=== PATIENT | female | born 1950 | race Caucasian/White ===

== ENCOUNTER 2017-12-22 18:36 | Emergency (ER) | payer OTHER ==
[~2017-12-22] VITALS: Ht 170.2 cm; Wt 86.2 kg
== END 2017-12-22 21:29 | disposition home or self-care (01) ==
LOC: ER 18:36
DX: S00.83XA Contusion of other part of head, initial encounter (principal); S20.212A Contusion of left front wall of thorax, initial encounter; W01.198A Fall on same level from slipping, tripping and stumbling with subsequent striking against other object, initial encounter
CPT/HCPCS: 70450; 71046; 99284

== ENCOUNTER 2022-05-17 15:22 | Inpatient (IN) | payer MEDICARE, OTHER ==
[~2022-05-17] VITALS: Ht 167.6 cm; Wt 78.8 kg
[2022-05-17 18:17] LABS: BASOPHILS ABSOLUTE AUTO 0.02 K/mm3 (0.00-0.23); BASOPHILS PERCENT AUTO 0 % (0-2); EOSINOPHILS ABSOLUTE AUTO 0.01 K/mm3 (0.00-0.68); EOSINOPHILS PERCENT AUTO 0 % (0-6); Hemoglobin 11.6 g/dL (11.5-16.0); IMMATURE GRAN ABSOLUTE AUTO 0.05 K/mm3 (0.00-0.10); IMMATURE GRAN PERCENT AUTO 1 % (0-1); LYMPHOCYTES ABSOLUTE AUTO 0.27 K/mm3 (0.84-5.20); LYMPHOCYTES PERCENT AUTO 4 % (21-46); MONOCYTES ABSOLUTE AUTO 0.26 K/mm3 (0.16-1.47); MONOCYTES PERCENT AUTO 4 % (4-13); Mean Corpuscular HGB 34.3 pg (26.0-34.0); Mean Corpuscular HGB Conc 35.2 g/dL (31.5-36.5); Mean Corpuscular Volume 98 fL (80-100); NEUTROPHILS ABSOLUTE AUTO 6.67 K/mm3 (1.96-9.15); NEUTROPHILS PERCENT AUTO 92 % (41-73); Platelet Count 80 K/mm3 (150-400); RDW Coefficient Variation 14.2 % (11.7-14.2); RDW Standard Deviation 51.6 fL (35.1-46.3); Red Blood Cell Count 3.38 M/mm3 (3.80-5.20); White Blood Cell Count 7.28 K/mm3 (4.00-11.30)
[2022-05-17 18:32] LABS: Albumin/Globulin Ratio 0.9 (0.8-1.8); Bilirubin, Total 1.9 mg/dL (0.1-1.0); Bun/Creatinine Ratio 16.8 (12.0-20.0); Calcium, Blood 8.6 mg/dL (8.5-10.1); Creatinine, Blood 1.37 mg/dL (0.40-1.00); Globulin, Blood 3.2 g/dL (2.2-4.0); Potassium, Blood 5.1 mmol/L (3.5-5.5); Total Protein, Blood 6.2 g/dL (6.4-8.2)
[2022-05-17] MEDS ORDERED: FURO20 PO (19:50)
[2022-05-17] MEDS ORDERED: POTA20LUD PO (19:51)
[2022-05-17] MEDS ORDERED: ALDACTONE25 MG PO (19:52)
--- NOTE | 2022-05-17 20:37 | NUR ---
NEW ADMIT PT ADMITTED FOR L HIP FX. SLIDE TRANSFER TO BED. ORIENTED TO CALL LIGHT & . MEDICATED FOR PAIN. WILL MONITOR.
[2022-05-18 05:17] LABS: BASOPHILS ABSOLUTE AUTO 0.02 K/mm3 (0.00-0.23); BASOPHILS PERCENT AUTO 0 % (0-2); EOSINOPHILS PERCENT AUTO 0 % (0-6); Hematocrit 32.4 % (33.0-51.0); Hemoglobin 11.3 g/dL (11.5-16.0); IMMATURE GRAN ABSOLUTE AUTO 0.07 K/mm3 (0.00-0.10); IMMATURE GRAN PERCENT AUTO 1 % (0-1); LYMPHOCYTES ABSOLUTE AUTO 0.43 K/mm3 (0.84-5.20); LYMPHOCYTES PERCENT AUTO 5 % (21-46); MONOCYTES ABSOLUTE AUTO 0.57 K/mm3 (0.16-1.47); MONOCYTES PERCENT AUTO 6 % (4-13); Mean Corpuscular HGB 34.1 pg (26.0-34.0); Mean Corpuscular HGB Conc 34.9 g/dL (31.5-36.5); Mean Corpuscular Volume 98 fL (80-100); Mean Platelet Volume 11.6 fL (9.1-12.4); NEUTROPHILS ABSOLUTE AUTO 8.36 K/mm3 (1.96-9.15); NEUTROPHILS PERCENT AUTO 89 % (41-73); Platelet Count 85 K/mm3 (150-400); RDW Coefficient Variation 14.5 % (11.7-14.2); RDW Standard Deviation 51.9 fL (35.1-46.3); Red Blood Cell Count 3.31 M/mm3 (3.80-5.20); White Blood Cell Count 9.45 K/mm3 (4.00-11.30)
[2022-05-18 05:39] LABS: Bun/Creatinine Ratio 19.4 (12.0-20.0); Calcium, Blood 8.2 mg/dL (8.5-10.1); Creatinine, Blood 1.55 mg/dL (0.40-1.00); Potassium, Blood 5.7 mmol/L (3.5-5.5)
--- NOTE | 2022-05-18 06:17 | NUR ---
SHIFT SUMMARY AOX4. VSS. DENIES N/V OR DYSPNEA. ADMITTED FOR L HIP FX. GRIMACES, MOANS, SIERRA OUT, PAINFUL TO TURN IN BED OR RAISE HOB, MEDICATED 3x c 0.5MG DILAUDID. L LEG EXTERNALLY ROTATED, PEDAL PULSES WEAK, TOES COOL, CAP REFILL <3. PT HAS BEEN NPO SINCE MIDNIGHT. ABD TENDER TO PALPATION LUQ, STATES THIS IS CHRONIC R/T LIVER DISEASE. SKIN TEAR ON R FOREARM & L ELBOW. PLAN FOR SURGERY TODAY. CALL LIGHT IN REACH, WILL MONITOR.
--- NOTE | 2022-05-18 12:11 | NUR ---
PT LEFT FOR DAY SURGERY AT 1155. SHREYAS RN IN DAY SURGERY NOTIFIED OF CALCIUM GLUCONATE ORDERED FOR PT AND NOTIFIED OF ELEVATED POTASSIUM. SHREYAS STATED HE COUND ADMINISTER THE CALCIUM GLUCONATE. PHARMACY CONTACTED AND ASKED TO SEND THAT MEDICATION TO DAY SURGERY.
--- NOTE | 2022-05-18 12:53 | NUR ---
THE PATIENT WAS BROUGHT TO DAY SURGERY FOR HER PROCEDURE, BUT THE PROCEDURE WAS CANCELLED.
--- NOTE | 2022-05-18 15:58 | NUR ---
PT IS UNABLE TO TOLERATE MOVEMENT FOR BUCKS TRACTION TO BE PLACED. DR. SUMMERS NOTIFIED.
--- NOTE | 2022-05-18 19:37 | NUR ---
SHIFT SUMMARY PT REMAINS IN THE HOSPITAL WAITING FOR SURGERY TOMORROW. PT HAS BEEN PAINFUL T/O THE DAY, MINIMAL MOVEMENT INCREASES PAIN. PAIN MANAGED WITH IV DILAUDID. PT DECLINED BUCKS TRACTION R/T INABILITY TO TOLERATE MOVEMENT EVEN WHEN PROVIDED WITH IV PAIN MEDICATION; DR. SUMMERS NOTIFIED. PT'S POTASSIUM HAS BEEN ELEVATED THIS SHIFT. SHE HAS AN IV TO HER RIGHT ARM, PT ALSO HAS A HX OF R MASTECTOMY. CONCERN THAT THIS IV MAY NOT BE ADEQUATE TO ADMINISTER CALCIUM GLUCONATE ORDERED. DR. LONGO STATED IMPLATED PORT COULD BE USED, PT BELIEVED SHE HAD AN IMPLANTED PORT, UPON CLOSE ASSESSMENT PORT COULD NOT BE LOCATED. PT STATES SHE IS UNSURE IF SHE STILL HAS THE PORT OR IF IT WAS REMOVED. SINCE IT COULD NOT BE POSITIVELY IDENTIFIED BY THIS RN OR BY GABE CAIN, POWER GLIDE PLACEMENT WAS ATTEMPTED BY GABE CAIN. VANGIE CAIN NOTIFIED OF DIFFICULT IV ACCESS. PCU CONTACTED FOR ATTEMPTED POWER GLIDE START, VANGIE MURPHY NOTIFIED. FAMILY IS AT THE BEDSIDE FOR SUPPORT. REPORT GIVEN TO VANGIE CAIN.
--- NOTE | 2022-05-19 04:04 | NUR ---
SHIFT SUMMARY NO ACUTE CHANGES. PT REPORTS TOLERABLE PAIN AT REST WITHOUT MOVING. 0.5MG IV DILAUDID PRN. LEFT HIP REMAINS EXT ROTATED ELEVATED ON A PILLOW. NEW PG IV PLACED AT START OF SHIFT. NPO AT MIDNIGHT FOR POSSIBLE SURGERY TODAY. MCDANIEL DRAINING DARK REBECCA COLORED URINE. PT HAS OTHERWISE RESTED WELL THIS SHIFT. CALL LIGHT WITHIN REACH.
[2022-05-19 05:00] LABS: BASOPHILS ABSOLUTE AUTO 0.02 K/mm3 (0.00-0.23); BASOPHILS PERCENT AUTO 0 % (0-2); EOSINOPHILS ABSOLUTE AUTO 0.06 K/mm3 (0.00-0.68); EOSINOPHILS PERCENT AUTO 1 % (0-6); Hematocrit 27.8 % (33.0-51.0); Hemoglobin 9.8 g/dL (11.5-16.0); IMMATURE GRAN ABSOLUTE AUTO 0.09 K/mm3 (0.00-0.10); IMMATURE GRAN PERCENT AUTO 1 % (0-1); LYMPHOCYTES ABSOLUTE AUTO 0.86 K/mm3 (0.84-5.20); LYMPHOCYTES PERCENT AUTO 9 % (21-46); MONOCYTES ABSOLUTE AUTO 0.72 K/mm3 (0.16-1.47); MONOCYTES PERCENT AUTO 8 % (4-13); Mean Corpuscular HGB 34.4 pg (26.0-34.0); Mean Corpuscular HGB Conc 35.3 g/dL (31.5-36.5); Mean Corpuscular Volume 98 fL (80-100); Mean Platelet Volume 11.9 fL (9.1-12.4); NEUTROPHILS ABSOLUTE AUTO 7.46 K/mm3 (1.96-9.15); NEUTROPHILS PERCENT AUTO 81 % (41-73); Platelet Count 73 K/mm3 (150-400); RDW Coefficient Variation 14.5 % (11.7-14.2); RDW Standard Deviation 51.9 fL (35.1-46.3); Red Blood Cell Count 2.85 M/mm3 (3.80-5.20); White Blood Cell Count 9.21 K/mm3 (4.00-11.30)
[2022-05-19 05:20] LABS: Albumin, Blood 2.6 g/dL (3.4-5.0); Anion Gap 7 mmol/L (6-16); Blood Urea Nitrogen 38 mg/dL (8-24); CO2, Blood 23 mmol/L (21-32); Calcium, Blood 8.6 mg/dL (8.5-10.1); Chloride, Blood 100 mmol/L (98-108); Creatinine, Blood 1.73 mg/dL (0.40-1.00); Glomerular Filtration Rate 31 (60-); Glucose, Blood 211 mg/dL (70-99); Phosphorus, Blood 3.7 mg/dL (2.5-4.9); Potassium, Blood 5.2 mmol/L (3.5-5.5); Sodium, Blood 130 mmol/L (136-145)
--- NOTE | 2022-05-19 09:04 | NUR ---
CARE ASSUMPTION PT A&O X4, TEARFUL W/ MINIMAL MOVEMENT. PT STATING, "I COULDN'T EVEN RAISE MY L ARM BEFORE W/OUT HURTING, BUT NOW I CAN. PT LAYING IN BED W/ L LEG ROTATED OUTWARD & BENDING @ THE KNEE. PT REPORTS INABILITY TO MOVE LLE D/T PAIN. BUCKS TRACTION SET UP AT FOOT OF BED, BUT PT PREVIOUSLY REFUSED TRACTION. PT NPO FOR POTENTIAL SURGERY TODAY. VSS. SPO2 > 92% ON RA. TELEMETRY SHOWING SR, HR 90s.
--- NOTE | 2022-05-19 10:18 | NUR ---
SURGERY PT GONE TO OR @ APPROX 1000.
--- NOTE | 2022-05-19 18:10 | NUR ---
END OF SHIFT NOTE PT A&O X4. PT REPORTS L HIP PAIN MUCH IMPROVED AFTER SURGERY. PT NOW TOLERATING MOVEMENT. PAIN MEDICATION PROVIDED PER EMAR/PT REQUEST. DRESSINGS TO L HIP & L LATERAL KNEE C/D/I. PT VSS. SPO2 > 92% ON RA. TELEMETRY SHOWING SR, HR 60s-90s. MCDANIEL CATH PATENT & DRAINING REBECCA URINE. FAMILY AT BEDSIDE.
--- NOTE | 2022-05-20 04:53 | NUR ---
POD1 FOR A LEFT HIP PINNING. X3 DRESSINGS ARE C/D/I. SENSATION AND CIRCULATION INTACT IN RLE. MODERATE SWELLING NOTED IN PTS THIGH T/O THE NIGHT, ICE APPLIED AND REPOSITIONING ENCOURAGED. PT ONLY TOLLERATED VERY MINIMAL REPOSITIONING. PAIN HAS BEEM DIFFICULT TO MANAGE DUE TO CHRONIC CRAMPING IN LLE. MEDICATED FOR PAIN WITH NORCO AND DILAUDID. VSS. PT TOLLERATING PO INTAKE W/O N/V. PT PASSING FLATTUS REGULARLY. MCDANIEL IN PLACE DRAINING REBECCA URINE. PLAN FOR PT TO WORK WITH PT/OT AN D/C TO A SNF IN [facility] WHEN READY. THE PATIENT IS CURRENTLY RESTING IN BED, IN NO DISTRESS, CALL LIGHT IN REACH
--- NOTE | 2022-05-20 07:11 | NUR ---
ASSUMED CARE: PT SITTING UPRIGHT IN BED. NSR ON TELE IN THE 90S. FAMILY AT BEDSIDE. CAN LINE OPERATOR IN ROOM AT THIS TIME. NO ACUTE NEEDS OR CONCERNS.
--- NOTE | 2022-05-20 08:53 | NUR ---
PHYSICAL THERAPY AT BEDSIDE AT THIS TIME.
[2022-05-20 11:07] LABS: BASOPHILS ABSOLUTE AUTO 0.02 K/mm3 (0.00-0.23); BASOPHILS PERCENT AUTO 0 % (0-2); EOSINOPHILS ABSOLUTE AUTO 0.05 K/mm3 (0.00-0.68); EOSINOPHILS PERCENT AUTO 1 % (0-6); Hematocrit 21.5 % (33.0-51.0); Hemoglobin 7.8 g/dL (11.5-16.0); IMMATURE GRAN ABSOLUTE AUTO 0.08 K/mm3 (0.00-0.10); IMMATURE GRAN PERCENT AUTO 1 % (0-1); LYMPHOCYTES ABSOLUTE AUTO 0.58 K/mm3 (0.84-5.20); LYMPHOCYTES PERCENT AUTO 8 % (21-46); MONOCYTES ABSOLUTE AUTO 0.68 K/mm3 (0.16-1.47); MONOCYTES PERCENT AUTO 9 % (4-13); Mean Corpuscular HGB 34.8 pg (26.0-34.0); Mean Corpuscular HGB Conc 36.3 g/dL (31.5-36.5); Mean Corpuscular Volume 96 fL (80-100); Mean Platelet Volume 11.9 fL (9.1-12.4); NEUTROPHILS ABSOLUTE AUTO 6.24 K/mm3 (1.96-9.15); NEUTROPHILS PERCENT AUTO 82 % (41-73); Platelet Count 73 K/mm3 (150-400); RDW Coefficient Variation 14.4 % (11.7-14.2); RDW Standard Deviation 50.4 fL (35.1-46.3); Red Blood Cell Count 2.24 M/mm3 (3.80-5.20); White Blood Cell Count 7.65 K/mm3 (4.00-11.30)
[2022-05-20 11:19] LABS: Bun/Creatinine Ratio 31.5 (12.0-20.0); Calcium, Blood 7.3 mg/dL (8.5-10.1); Creatinine, Blood 1.49 mg/dL (0.40-1.00); Potassium, Blood 4.8 mmol/L (3.5-5.5)
--- NOTE | 2022-05-20 17:52 | NUR ---
SHIFT SUMMARY: PT AWAITING DISCHARGE TO SNF. UP INTO CHAIR WITH THERAPY WITH TWO ASSIST. MEDICATED FOR PAIN X2 THIS SHIFT. NO ACUTE NEEDS AT THIS TIME.
--- NOTE | 2022-05-21 04:13 | NUR ---
POD2 FOR LEFT HIP NAILING. SENSATION AND CIRCULATION REMAINS INTACT. X3 DRESSINGS ARE C/D/I. VSS. PT HAS BEEN MEDICATED FOR PAIN WITH NORCO T/O THE NIGHT. NONPHARM METHODS OF PAIN CONTROL HAVE BEEN OFFERED T/O THE NIGHT AND THE PT HAS BEEN RELUCTANT TO TRY DUE TO FEAR OF PAIN. PT ONLY TOLLERATED BEING REPOSITIONED ONCE T/O THE NIGHT. MCDANIEL IN PLACE, PATENT, REBECCA OUTPUT. PT ON 1200 ML FR. TOLLERATING PO INTAKE W/O N/V, PASSING FLATTUS REGULARLY. PT SLEPT WELL T/O THE NIGHT. PLAN FOR PT TO CONTINUE TO WORK WITH PT/OT UNTIL D/C TO SNF. THE PATIENT IS CURRENTLY SLEEPING, IN NO DISTRESS. CALL LIGHT IN REACH.
[2022-05-21 05:30] LABS: Bun/Creatinine Ratio 33.8 (12.0-20.0); Calcium, Blood 7.3 mg/dL (8.5-10.1); Creatinine, Blood 1.54 mg/dL (0.40-1.00); Potassium, Blood 5.1 mmol/L (3.5-5.5)
--- NOTE | 2022-05-21 15:48 | NUR ---
SHIFT SUMMARY: POD 2 LEFT HIP NAILING NO SIGNIFICANT CHANGES. PATIENT IS A&OX4. VS ARE WNL AND IS ON RA. PAIN IS MANAGED WITH PO NORCO DURING THIS SHIFT. SHE IS A 3 PERSON MAX ASSIST AND A STAND PIVIOT FROM [id number] WITH GAIT BELT. LEFT HIP HAS 3 FOAM DRESSINGS WITH GAUZE THAT ARE C/D/I. DENIES NUMBNESS AND TINGLING AND CAN MOVE ALL EXTREMITIES WHEN ASKED. MCDANIEL IS PATENT AND DRAINING PER GRAVITY. PATIENT TOLERATING PO INTAKE AND IS PASSING GAS. CALLS APPROPRIATELY. CALL LIGHT WITHIN REACH. THE PLAN IS TO DISCHARGE [place] TO A SNF ON TUESDAY MORNING AND TO CONTINUE WITH PT/OT WELL PAIN MANAGEMENT.
[2022-05-22 04:43] LABS: BASOPHILS ABSOLUTE AUTO 0.01 K/mm3 (0.00-0.23); BASOPHILS PERCENT AUTO 0 % (0-2); EOSINOPHILS ABSOLUTE AUTO 0.07 K/mm3 (0.00-0.68); EOSINOPHILS PERCENT AUTO 1 % (0-6); Hematocrit 19.9 % (33.0-51.0); Hemoglobin 7.2 g/dL (11.5-16.0); IMMATURE GRAN ABSOLUTE AUTO 0.08 K/mm3 (0.00-0.10); IMMATURE GRAN PERCENT AUTO 1 % (0-1); LYMPHOCYTES ABSOLUTE AUTO 0.69 K/mm3 (0.84-5.20); LYMPHOCYTES PERCENT AUTO 12 % (21-46); MONOCYTES ABSOLUTE AUTO 0.51 K/mm3 (0.16-1.47); MONOCYTES PERCENT AUTO 9 % (4-13); Mean Corpuscular HGB 34.3 pg (26.0-34.0); Mean Corpuscular HGB Conc 36.2 g/dL (31.5-36.5); Mean Corpuscular Volume 95 fL (80-100); Mean Platelet Volume 11.6 fL (9.1-12.4); NEUTROPHILS ABSOLUTE AUTO 4.58 K/mm3 (1.96-9.15); NEUTROPHILS PERCENT AUTO 77 % (41-73); Platelet Count 85 K/mm3 (150-400); RDW Coefficient Variation 14.5 % (11.7-14.2); RDW Standard Deviation 48.5 fL (35.1-46.3); White Blood Cell Count 5.94 K/mm3 (4.00-11.30)
[2022-05-22 04:58] LABS: Bun/Creatinine Ratio 37.3 (12.0-20.0); Calcium, Blood 7.2 mg/dL (8.5-10.1); Creatinine, Blood 1.66 mg/dL (0.40-1.00); Magnesium, Blood 2.2 mg/dL (1.6-2.4)
--- NOTE | 2022-05-22 05:38 | NUR ---
SHIFT SUMMARY A/O X3-4, INTERMITTENTLY CONFUSED THROUGHOUT THE NIGHT. POD3 L HIP PINNING, 3X GAUZE FOAM DRESSINGS- C.D.I. MAINTAINED 1,200 FLUID RESTRICTION. VITAL SIGNS STABLE. BEDREST THROUGHOUT THE SHIFT. PAIN MANAGED W/ PO PAIN MEDICATION. MCDANIEL DRAINING TO GRAVITY- REDDISH COLORED URINE. PLEASANT AND COOPERATIVE W/ CARE. WILL CONTINUE TO MONITOR AND REPORT TO ONCOMING RN.
[2022-05-22 12:24] LABS: Hematocrit 19.4 % (33.0-51.0); Hemoglobin 7.1 g/dL (11.5-16.0)
--- NOTE | 2022-05-22 17:54 | NUR ---
PT HAS BEEN STABLE THIS SHIFT. PT HAS BEEN UP TO CHAIR MOST OF THE DAY. PT DENIES PAIN. DRESSINGS CDI TO LEFT LEG. 3 MAX ASSIST OOB. TOLERATING CARDIAC DIET. HGB AND SODIUM CONT TO DECREASE THIS SHIFT. AM LABS TO REPEAT. MCDANIEL DRAINING REBECCA URINE. PT HAS NOT HAD A BM THIS SHIFT. CONT STOOL SOFTENERS. FAMILY AT BEDSIDE, ATTENTIVE. PLAN FOR TRANSFER TO SNF IN [place] ON TUESDAY.
[2022-05-22 18:01] LABS: Bun/Creatinine Ratio 41.9 (12.0-20.0); Calcium, Blood 7.6 mg/dL (8.5-10.1); Creatinine, Blood 1.48 mg/dL (0.40-1.00)
[2022-05-23 05:01] LABS: BASOPHILS ABSOLUTE AUTO 0.02 K/mm3 (0.00-0.23); BASOPHILS PERCENT AUTO 0 % (0-2); EOSINOPHILS PERCENT AUTO 2 % (0-6); Hematocrit 20.4 % (33.0-51.0); Hemoglobin 7.4 g/dL (11.5-16.0); IMMATURE GRAN ABSOLUTE AUTO 0.25 K/mm3 (0.00-0.10); IMMATURE GRAN PERCENT AUTO 4 % (0-1); LYMPHOCYTES ABSOLUTE AUTO 0.84 K/mm3 (0.84-5.20); LYMPHOCYTES PERCENT AUTO 12 % (21-46); MONOCYTES ABSOLUTE AUTO 0.58 K/mm3 (0.16-1.47); MONOCYTES PERCENT AUTO 9 % (4-13); Mean Corpuscular HGB 34.4 pg (26.0-34.0); Mean Corpuscular HGB Conc 36.3 g/dL (31.5-36.5); Mean Corpuscular Volume 95 fL (80-100); NEUTROPHILS ABSOLUTE AUTO 5.05 K/mm3 (1.96-9.15); NEUTROPHILS PERCENT AUTO 74 % (41-73); Platelet Count 115 K/mm3 (150-400); RDW Coefficient Variation 15.1 % (11.7-14.2); RDW Standard Deviation 50.8 fL (35.1-46.3); Red Blood Cell Count 2.15 M/mm3 (3.80-5.20); White Blood Cell Count 6.84 K/mm3 (4.00-11.30)
[2022-05-23 05:19] LABS: Magnesium, Blood 2.3 mg/dL (1.6-2.4)
[2022-05-23 05:28] LABS: Bun/Creatinine Ratio 43.9 (12.0-20.0); Calcium, Blood 7.6 mg/dL (8.5-10.1); Creatinine, Blood 1.48 mg/dL (0.40-1.00); Potassium, Blood 5.2 mmol/L (3.5-5.5)
--- NOTE | 2022-05-23 05:43 | NUR ---
SHIFT SUMMARY A/O X4 THROUGHOUT SHIFT- POD4 L HIP PINNING, 3X GAUZE DRESSINGS IN PLACE. VITAL SIGNS STABLE. MCDANIEL IN PLACE DRAINING TO GRAVITY, REBECCA COLORED URINE. 3 MAX ASSIST FROM CHAIR TO BED AT BEGINING OF SHIFT, PT REPORTS PAIN W/ MOVING L LEG. REPORTS NOT NEEDING PAIN MEDICATION THROUGHOUT SHIFT SHE REMAINED BEDREST ONCE BACK INTO BED. TOLERATED PO INTAKE. NO ACUTE CHANGES THROUGHOUT SHIFT. SODIUM REMAINS CRITICAL LEVEL, BUT NO DROP IN VALUE SINCE PREVIOUS DRAW. WILL CONTINUE TO MONITOR AND REPORT TO ONCOMING RN.
--- NOTE | 2022-05-23 08:11 | NUR ---
LOW SODIUM DR. ANDERSON NOTIFIED OF CRITICAL LOW SODIUM LEVEL OF 119. PER DR. ANDERSON HE BELIEVES PT IS RETAINING FLUID R/T CIRRHOSIS OF THE LIVER WHICH HE BELIEVES IS DILUTING ELECTROLYTES. AT THIS TIME PLAN TO GIVE AM DOSE OF LASIX AND DR. ANDERSON REPORTED HE WOULD REASSESS PT AT A LATER TIME FOR FURTHER NEED FOR LASIX. WILL CONTINUE TO MONITOR FOR ANY CHANGES.
--- NOTE | 2022-05-23 09:44 | NUR ---
DRESSING CHANGE AT APPROXIMATELY 09:30 DRESSINGS WERE CHANGED AT INCISION SITES. THERE ARE 3 INCISIONS, THEY APPEAR WELL APPROXIMATED, SMALL AMOUNT OF SEROSANGUINOUS DRAINAGE WAS NOTED ON DRESSING. NEW AQUACELLS WERE APPLIED.
--- NOTE | 2022-05-23 10:28 | NUR ---
TRANSFER DR. ANDERSON REQUESTED PT TRANSFER TO PCU. PT WENT TO ICU PCU STATUS R/T LOW SODIUM LEVEL. REPORT GIVEN TO ADELSO JOHNSON RN PRIOR TO TRANSFER. PT WAS TRANSFERRED TO ICU 4 AT APPROXIMATELY 1020. FAMILY WAS EDUCATED REGARDING TRANSFER. PT WAS PRE-MEDICATED FOR PAIN PRIOR TO TRANSFER.
[2022-05-23 12:12] LABS: Bun/Creatinine Ratio 47.2 (12.0-20.0); Calcium, Blood 7.5 mg/dL (8.5-10.1); Creatinine, Blood 1.42 mg/dL (0.40-1.00); Potassium, Blood 5.1 mmol/L (3.5-5.5)
[2022-05-23 15:28] LABS: Bun/Creatinine Ratio 45.6 (12.0-20.0); Calcium, Blood 7.5 mg/dL (8.5-10.1); Creatinine, Blood 1.49 mg/dL (0.40-1.00); Potassium, Blood 5.4 mmol/L (3.5-5.5)
--- NOTE | 2022-05-23 16:58 | NUR ---
ICU STAY/SHIFT SUMMARY PT TRANSFERED TO ICU/PCU STATUS AT 1010 FOR HYPONATREMIA. PT A&OX3. ANSWERS QUESTIONS APPROPRIATELY, FOLLOW COMMANDS. IV LASIX AND NACL TAB GIVEN. NA IMPROVED. NEURO REMAINS UNCHANGED. VSS. S/O LEFT HIP REPAIR. AQUACEL DRESSINGS IN PLACE. PT HAS SKIN TEARS TO ARM BILATERALLY. UP TO BSC, 3 PERSON ASSIST. LARGE BM. MCDANIEL IN PLACE, DRAINING CLEAR YELLOW URINE. 700 ML OUT THIS SHIFT. PENDING ABD U/S TO EVALUATED FOR ASCITES AND POSSIBLE PARACENTESIS. REPEAT BMP AT 1900. PT STATUS CHANGED TO SURGICAL. REPORT TO GABBY CAIN, TRANSFERRED c ALL BELONGINGS. FAMILY AT BEDSIDE.
--- NOTE | 2022-05-23 17:50 | NUR ---
SHIFT SUMMARY PATIENT RETURNED TO SURGICAL UNIT FROM ICU AT APPROXIMATELY 17:15. FAMILY AT BEDSIDE, THEY ARE TENTATIVELY PREPARING FOR D/C TOMORROW. DRESSINGS ON LEFT HIP ARE C/D/I. VSS. PATIENT IS ABLE TO MAKE NEEDS KNOWN, CALL LIGHT WITHIN REACH.
[2022-05-23 20:01] LABS: Bun/Creatinine Ratio 44.3 (12.0-20.0); Calcium, Blood 7.6 mg/dL (8.5-10.1); Creatinine, Blood 1.49 mg/dL (0.40-1.00); Potassium, Blood 5.1 mmol/L (3.5-5.5)
--- NOTE | 2022-05-24 04:13 | NUR ---
SHIFT SUMMARY NO ACUTE CHANGES THROUGHOUT THE SHIFT. A/O X4- RESTED WELL THROUGHOUT THE NIGHT. POD5 L HIP PINNING- AQUACEL DRESSINGS IN PLACE, SCANT AMOUNT OF DRAINAGE. MCDANIEL IN PLACE, DRAINING TO GRAVITY. VITALS STABLE. PLAN TO DC W/ FAMILY TODAY TO TRANSFER TO A [facility] FACILITY UP [place].
[2022-05-24 05:58] LABS: Influenza A, PCR NEGATIVE (NEGATIVE); Influenza B, PCR NEGATIVE (NEGATIVE); Resp Syncytial Virus, PCR NEGATIVE (NEGATIVE); SARS-Cov-2 (COVID-19) PCR, MMC NEGATIVE (NEGATIVE)
[2022-05-24 06:15] LABS: BASOPHILS ABSOLUTE AUTO 0.02 K/mm3 (0.00-0.23); BASOPHILS PERCENT AUTO 0 % (0-2); EOSINOPHILS PERCENT AUTO 2 % (0-6); Hematocrit 20.1 % (33.0-51.0); Hemoglobin 7.3 g/dL (11.5-16.0); IMMATURE GRAN ABSOLUTE AUTO 0.12 K/mm3 (0.00-0.10); IMMATURE GRAN PERCENT AUTO 3 % (0-1); LYMPHOCYTES ABSOLUTE AUTO 0.72 K/mm3 (0.84-5.20); LYMPHOCYTES PERCENT AUTO 16 % (21-46); MONOCYTES ABSOLUTE AUTO 0.37 K/mm3 (0.16-1.47); MONOCYTES PERCENT AUTO 8 % (4-13); Mean Corpuscular HGB 34.4 pg (26.0-34.0); Mean Corpuscular HGB Conc 36.3 g/dL (31.5-36.5); Mean Corpuscular Volume 95 fL (80-100); Mean Platelet Volume 10.5 fL (9.1-12.4); NEUTROPHILS ABSOLUTE AUTO 3.17 K/mm3 (1.96-9.15); NEUTROPHILS PERCENT AUTO 71 % (41-73); Platelet Count 102 K/mm3 (150-400); RDW Coefficient Variation 15.6 % (11.7-14.2); RDW Standard Deviation 51.2 fL (35.1-46.3); Red Blood Cell Count 2.12 M/mm3 (3.80-5.20)
[2022-05-24 06:26] LABS: Bun/Creatinine Ratio 46.8 (12.0-20.0); Calcium, Blood 7.8 mg/dL (8.5-10.1); Creatinine, Blood 1.41 mg/dL (0.40-1.00); Magnesium, Blood 2.4 mg/dL (1.6-2.4); Potassium, Blood 5.1 mmol/L (3.5-5.5)
--- NOTE | 2022-05-24 10:49 | NUR ---
05/24/22 1049 Мария Ibarra VERIFICATIONS: EDIT CHART.
[2022-05-24 13:48] LABS: Bun/Creatinine Ratio 48.6 (12.0-20.0); Calcium, Blood 7.7 mg/dL (8.5-10.1); Creatinine, Blood 1.38 mg/dL (0.40-1.00); Potassium, Blood 5.1 mmol/L (3.5-5.5)
--- NOTE | 2022-05-24 18:05 | NUR ---
Spoke to bedside RN today, she recommends speaking to pt and family in the am, as pt's labs have remained the same. Possible for pt to go to SNF tomorrow, so I wait until the am to have any follow up discussion with them, so as not to confuse them regarding goals of care.
--- NOTE | 2022-05-24 18:52 | NUR ---
SHIFT SUMMARY PT HAS DONE WELL TODAY DESPITE DC POSTPONED. WORKED w/ OT & STOOD AT BEDSIDE FOR VERY SHORT TIME. RATES PAIN HIGH BUT DECLINES PAIN MEDS AT X's. CHIRAG's WNL.
--- NOTE | 2022-05-25 05:34 | NUR ---
SHIFT SUMMARY A/O X4- BEDREST THROUGHOUT THE SHIFT. POD5 L HIP FX- 3 AQUACELS IN PLACED, CHANGED THIS AM. PAIN MANAGED W/ PO PAIN MEDICATIONS. TOLERATING PO INTAKE. VITAL SIGNS STABLE. MCDANIEL DRAINING TO GRAVITY. NO ACUTE CHANGES THROUGHOUT SHIFT. WILL CONTINUE TO MONITOR AND REPORT TO ONCOMING RN.
[2022-05-25 07:14] LABS: BASOPHILS ABSOLUTE AUTO 0.02 K/mm3 (0.00-0.23); BASOPHILS PERCENT AUTO 1 % (0-2); EOSINOPHILS ABSOLUTE AUTO 0.09 K/mm3 (0.00-0.68); EOSINOPHILS PERCENT AUTO 3 % (0-6); Hemoglobin 7.2 g/dL (11.5-16.0); IMMATURE GRAN ABSOLUTE AUTO 0.12 K/mm3 (0.00-0.10); IMMATURE GRAN PERCENT AUTO 3 % (0-1); LYMPHOCYTES ABSOLUTE AUTO 0.52 K/mm3 (0.84-5.20); LYMPHOCYTES PERCENT AUTO 14 % (21-46); MONOCYTES ABSOLUTE AUTO 0.41 K/mm3 (0.16-1.47); MONOCYTES PERCENT AUTO 11 % (4-13); Mean Corpuscular HGB 34.8 pg (26.0-34.0); Mean Corpuscular Volume 97 fL (80-100); Mean Platelet Volume 9.9 fL (9.1-12.4); NEUTROPHILS ABSOLUTE AUTO 2.47 K/mm3 (1.96-9.15); NEUTROPHILS PERCENT AUTO 68 % (41-73); Platelet Count 99 K/mm3 (150-400); RDW Coefficient Variation 16.3 % (11.7-14.2); RDW Standard Deviation 56.4 fL (35.1-46.3); Red Blood Cell Count 2.07 M/mm3 (3.80-5.20); White Blood Cell Count 3.63 K/mm3 (4.00-11.30)
[2022-05-25 07:27] LABS: Anion Gap 8 mmol/L (6-16); Blood Urea Nitrogen 63 mg/dL (8-24); Bun/Creatinine Ratio 45.3 (12.0-20.0); CO2, Blood 23 mmol/L (21-32); Calcium, Blood 7.6 mg/dL (8.5-10.1); Chloride, Blood 94 mmol/L (98-108); Creatinine, Blood 1.39 mg/dL (0.40-1.00); Glomerular Filtration Rate 41 (60-); Glucose, Blood 113 mg/dL (70-99); Phosphorus, Blood 3.6 mg/dL (2.5-4.9); Potassium, Blood 5.2 mmol/L (3.5-5.5); Sodium, Blood 125 mmol/L (136-145)
--- NOTE | 2022-05-25 09:35 | NUR ---
DISCHARGE TO SNF IN [place] VIA PRIVATE CAR. PT IS PAINFUL BUT MEDICATED PRIOR TO DC. VERY HEAVY MAX ASSIST INTO CAR. AQUACEL's CHANGED DURING NOC SHIFT. CDI.
--- NOTE | 2022-05-25 10:00 | NUR ---
ATTEMPTED TO CALL REPORT TO SNF. MESSAGE LEFT w/ CALL BACK #
== END 2022-05-25 09:20 | DRG 481 ==
LOC: ER 15:22 → SURS 17:47 → MEDS 17:47 → SURS 20:13 → ICUE 05-23 10:29 → SURS 05-23 17:19
PROVIDERS: Family Medicine; Orthopaedic Surgery; Physician Assistant; Student in an Organized Health Care Education/Training Program; ADMIT Internal Medicine
PROC: 30233R1 Transfusion of Nonautologous Platelets into Peripheral Vein, Percutaneous Approach (ICD-10-PCS; 2022-05-17)
PROC: 0QS706Z Reposition Left Upper Femur with Intramedullary Internal Fixation Device, Open Approach (ICD-10-PCS; principal; 2022-05-19 11:30)
DX: S72.142A Displaced intertrochanteric fracture of left femur, initial encounter for closed fracture (principal); E87.1 Hypo-osmolality and hyponatremia; K76.6 Portal hypertension; N17.9 Acute kidney failure, unspecified; N18.30 Chronic kidney disease, stage 3 unspecified; K74.60 Unspecified cirrhosis of liver; K75.4 Autoimmune hepatitis; S09.90XA Unspecified injury of head, initial encounter; D69.6 Thrombocytopenia, unspecified; D64.9 Anemia, unspecified; R73.9 Hyperglycemia, unspecified; E87.5 Hyperkalemia; Z20.822 Contact with and (suspected) exposure to COVID-19; W18.09XA Striking against other object with subsequent fall, initial encounter; Z85.3 Personal history of malignant neoplasm of breast; Z85.42 Personal history of malignant neoplasm of other parts of uterus; Z90.12 Acquired absence of left breast and nipple; Z79.01 Long term (current) use of anticoagulants; Z79.899 Other long term (current) drug therapy; Z90.710 Acquired absence of both cervix and uterus; Z90.722 Acquired absence of ovaries, bilateral; Z51.5 Encounter for palliative care
CPT/HCPCS: 0241U; 36415; 51702; 73502; 73552; 73700; 76377; 76705; 80048; 80053; 80069; 82947; 83735; 83930; 83935; 84132; 84300; 85014; 85018; 85025; 86900; 86901; 93005; 93010; 96374-59; 96375-59; 96376-59; 97110; 97162; 97166; 97530; 97535; 99285-25; A9270; C1713; C1751; C1769; J0171; J0610; J0690; J1170; J1650; J1815; J1940; J2250; J2405; J2704; J3010; J7030; J7050; J7120; P9035